=== PATIENT | female | born 1945 | race Caucasian/White ===

== ENCOUNTER 2017-04-08 11:55 | Inpatient (IN) | payer MEDICARE ==
[~2017-04-08 11:55] MED LIST: ALBUTEROL SULF8.5 GM IH; BENADRYL PO; BENZONATATE200 MG PO; CALCIUM PO; CALCIUM500 MG PO; CENTRUM COMPLE1 EACH PO; CENTRUM MULTIV1 EACH PO; HYDROCHLOROTH12.5 MG PO; IRON325 ( 65 ) PO; IRON325 M1 PO; K-DUR20 ME1 PO; LEVOFLOXACIN500 MG PO; LISINOPRIL-HCTZ PO; LISINOPRIL20 MG PO; MAGNESIUM400 MG PO; METOPROLOL TART25 MG PO; NATURAL VIT1000 UNIT PO; PERCOCET 5/3251 TAB PO; POTASSIUM CHLO10 MEQ PO; PREDNISONE20 MG PO; PROBIOTIC1 EAC4 PO; ULTRAM50 MG PO; VITAMIN B12 SQ; VITAMIN B12100 MCG PO; VITAMIN D3400 UNI2 PO; VITAMIN D400 UNI2 PO; ZOFRAN ODT4 MG/UDTAB PO; [UNRECOGNIZED DRUG - OTHER] PO; [UNRECOGNIZED DRUG - OTHER] PO
[2017-04-08 13:45] LABS: BASO % 0.2 % (0-2); EOS % 0.1 % (0-7); HCT-HEMATOCRIT 43.2 % (34.0-49.0); HGB-HEMOGLOBIN 15.3 gm/dl (12.0-15.5); IMMATURE GRANULOCYTES ABSOLUTE 0.04 tho/cmm (0-0.03); IMMATURE GRANULOCYTES PERCENT 0.3 % (0-0.3); LYMPH % 7.8 % (20-45); MCH (MEAN CORPUSCULAR HGB) 31.5 pg (28.0-32.0); MCHC MEAN CORPUSCULAR HGB CONC 35.4 % (32.0-36.0); MCV (MEAN CELL VOLUME) 88.9 fl (82.0-96.0); MEAN PLATELET VOLUME 11.5 cmc (9.4-12.4); MONO % 3.4 % (0-12); MONOCYTE ABSOLUTE COUNT 0.4 tho/cmm (0.0-1.2); NEUTROPHIL ABSOLUTE COUNT 11.3 tho/cmm (1.6-8.0); NEUTROPHIL-AUTOMATED 11.3 tho/cmm (1.6-8.0); NEUTROPHILS % 88.2 % (40-80); PLATELET COUNT 197 tho/cmm (150-450); RED BLOOD COUNT 4.86 mil/cmm (4.00-5.20); RED CELL DISTRIBUTION WIDTH 13.4 % (12.4-16.4); WHITE BLOOD COUNT 12.7 tho/cmm (4.0-10.0)
[2017-04-08 13:48] LABS: KETONE-BETA (WHOLE BLOOD) 0.2 mmol/L (0.0-0.6)
[2017-04-08 14:03] LABS: ALBUMIN 3.8 g/dl (3.5-5.0); ALKALINE PHOSPHATASE 97 U/L (33-138); ALT/SGPT 48 U/L (12-78); BILIRUBIN,TOTAL 0.6 mg/dl (0-1.5); BLOOD UREA NITROGEN 28 mg/dl (6-24); C-REACTIVE PROTEIN 0.8 mg/dl (0-0.9); CARBON DIOXIDE-VENOUS 19 mmol/L (22-32); CHLORIDE 106 mmol/l (96-110); CREATININE 1.14 mg/dl (0.50-1.10); GLUCOSE 327 mg/dL (70-110); SODIUM 138 mmol/L (135-145); eGFR VALUE FOR BLACK 56 mL/Min
[2017-04-08 14:06] LABS: ANION GAP 17 mmol/L (0-20); AST/SGOT 38 U/L (10-40); POTASSIUM 4.4 mmol/L (3.7-5.1)
[2017-04-08 15:17] LABS: URINE APPEARANCE CLEAR; URINE BILIRUBIN NEGATIVE (NEG); URINE BLOOD NEGATIVE (NEG); URINE COLOR YELLOW; URINE GLUCOSE (UA) LARGE (NEG); URINE KETONE SMALL (NEG); URINE LEUKOCYTE ESTERASE POSITIVE (NEG); URINE NITRITE NEGATIVE (NEG); URINE PROTEIN MODERATE (NEG); URINE SPECIFIC GRAVITY 1.015 (1.003-1.030)
[2017-04-08 15:27] LABS: URINE EPITHELIAL CELLS 0-2 /[HPF] (0-10); URINE RBC 0 /[HPF] (0-5); URINE WBC 0-2 /[HPF] (0-5)
[2017-04-08] MEDS ORDERED: LANTUS SOL100 UNIT/1 SC (15:46)
[2017-04-08] MEDS ORDERED: ATIVAN0.5 M1 PO (15:46)
[2017-04-08] MEDS ORDERED: LANOXIN250 MC2 PO (15:46)
[2017-04-08] MEDS ORDERED: COZAAR50 M1 PO (15:46)
[2017-04-08] MEDS ORDERED: NEURONTIN100 M1 PO (16:28)
[2017-04-08] MEDS ORDERED: LASIX20 M1 PO (16:28)
[2017-04-08] MEDS ORDERED: GLUCOPHAGE500 M3 PO (16:28)
[2017-04-08] MEDS ORDERED: SYNTHROID125 MC1 PO (16:28)
[2017-04-08] MEDS ORDERED: ZOFRAN4 M2 PO (16:29)
[2017-04-08] MEDS ORDERED: POTASSIUM CHLO20 ME3 PO (16:29)
[2017-04-08] MEDS ORDERED: PROTONIX40 M2 PO (16:29)
--- NOTE | 2017-04-08 18:42 | NUR ---
PT ARRIVED TO FLOOR, SETTLED IN ROOM. VS TAKEN. 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 INSERTED NG AT 1810 AND HOOKED TO LIS.
[2017-04-08] MEDS ORDERED: LOVAZA1 GM/CAP PO (21:14)
[2017-04-08] MEDS ORDERED: VITAMIN D31000 UNI3 PO (21:15)
[2017-04-08] MEDS ORDERED: VIT B12 SC (21:18)
[2017-04-09 05:38] LABS: BASO % 0.2 % (0-2); EOS % 1.1 % (0-7); EOSINOPHIL ABSOLUTE COUNT 0.1 tho/cmm (0.0-0.7); HCT-HEMATOCRIT 37.7 % (34.0-49.0); HGB-HEMOGLOBIN 12.9 gm/dl (12.0-15.5); IMMATURE GRANULOCYTES ABSOLUTE 0.02 tho/cmm (0-0.03); IMMATURE GRANULOCYTES PERCENT 0.2 % (0-0.3); LYMPH % 23.8 % (20-45); LYMPH ABSOLUTE COUNT 1.9 tho/cmm (0.8-4.5); MCH (MEAN CORPUSCULAR HGB) 30.9 pg (28.0-32.0); MCHC MEAN CORPUSCULAR HGB CONC 34.2 % (32.0-36.0); MCV (MEAN CELL VOLUME) 90.4 fl (82.0-96.0); MONO % 6.9 % (0-12); MONOCYTE ABSOLUTE COUNT 0.6 tho/cmm (0.0-1.2); NEUTROPHIL ABSOLUTE COUNT 5.5 tho/cmm (1.6-8.0); NEUTROPHIL-AUTOMATED 5.5 tho/cmm (1.6-8.0); NEUTROPHILS % 67.8 % (40-80); PLATELET COUNT 179 tho/cmm (150-450); RED BLOOD COUNT 4.17 mil/cmm (4.00-5.20); RED CELL DISTRIBUTION WIDTH 13.6 % (12.4-16.4); WHITE BLOOD COUNT 8.1 tho/cmm (4.0-10.0)
[2017-04-09 05:51] LABS: ANION GAP 15 mmol/L (0-20); BLOOD UREA NITROGEN 18 mg/dl (6-24); CALCIUM 7.7 mg/dl (8.5-10.5); CARBON DIOXIDE-VENOUS 23 mmol/L (22-32); CHLORIDE 110 mmol/l (96-110); GLUCOSE 201 mg/dL (70-110); POTASSIUM 3.9 mmol/L (3.7-5.1); SODIUM 144 mmol/L (135-145); eGFR VALUE FOR BLACK 74 mL/Min
[2017-04-10 06:06] LABS: ANION GAP 14 mmol/L (0-20); BLOOD UREA NITROGEN 13 mg/dl (6-24); CALCIUM 7.7 mg/dl (8.5-10.5); CARBON DIOXIDE-VENOUS 21 mmol/L (22-32); CHLORIDE 111 mmol/l (96-110); CREATININE 0.79 mg/dl (0.50-1.10); GLUCOSE 202 mg/dL (70-110); SODIUM 142 mmol/L (135-145); eGFR VALUE FOR BLACK 87 mL/Min
--- NOTE | 2017-04-10 22:33 | NUR ---
VIRTUAL CARE NOTE: REVIEWED PLAN OF CARE WITH PT. PT FEELING 99% BETTER THAN WHEN SHE CAME IN. HAVING A GREAT STAY. LOVES THE STAFF, HOSPITAL ETC. DENIES ANY QUESTIONS OR CONCERNS. HOPING TO TRY CLEARS TOMORROW AND HOME EARLY NEXT WEEK. STILL C/O JAW PAIN, ICE COMPRESS HELPS. WANTS NG OUT SOON HOPING THAT WILL HELP. ENCOURAGED FALL PRECAUTIONS AND TO NOTIFY STAFF WITH ANY NEEDS. PT V/U. WILL CONTINUE WITH CHART REVIEW.
[2017-04-11 07:05] LABS: ANION GAP 12 mmol/L (0-20); BLOOD UREA NITROGEN 9 mg/dl (6-24); CALCIUM 7.7 mg/dl (8.5-10.5); CARBON DIOXIDE-VENOUS 24 mmol/L (22-32); CHLORIDE 109 mmol/l (96-110); CREATININE 0.75 mg/dl (0.50-1.10); GLUCOSE 154 mg/dL (70-110); POTASSIUM 3.8 mmol/L (3.7-5.1); SODIUM 141 mmol/L (135-145); eGFR VALUE FOR BLACK >90 mL/Min
--- NOTE | 2017-04-11 19:23 | NUR ---
VIRTUAL CARE NOTE: ASSESSMENT DEFERRED. PT. SLEEPING.
[2017-04-12] MEDS ORDERED: FLONASE ALLERG9.9 ML (10:20)
--- NOTE | 2017-04-12 12:23 | NUR ---
VIRTUAL CARE NOTE: PT RESTING ON BED, FAMILY AT BEDSIDE. PT READY FOR DISCHARGE INSTURCTIONS, INFORMATION GIVEN TO PT, ALL QUESTIONS ANSWERED. PT DENIES FURTHER QUESTIONS OR CONCERNS.
[2017-08-17] MEDS ORDERED: SENOKOT8.6 M1 PO (14:41)
== END 2017-04-12 13:15 | DRG 389 ==
LOC: EDMED 11:55 → EMR2 16:44 → 5WD 19:14
PROVIDERS: Emergency Medicine; ADMIT Family Medicine
DX: K56.60 Unspecified intestinal obstruction (principal); K91.2 Postsurgical malabsorption, not elsewhere classified; E11.40 Type 2 diabetes mellitus with diabetic neuropathy, unspecified; E11.21 Type 2 diabetes mellitus with diabetic nephropathy; E11.65 Type 2 diabetes mellitus with hyperglycemia; G47.33 Obstructive sleep apnea (adult) (pediatric); Z95.2 Presence of prosthetic heart valve; I48.2 Chronic atrial fibrillation; I44.0 Atrioventricular block, first degree; I12.9 Hypertensive chronic kidney disease with stage 1 through stage 4 chronic kidney disease, or unspecified chronic kidney disease; E11.22 Type 2 diabetes mellitus with diabetic chronic kidney disease; N18.3 Chronic kidney disease, stage 3 (moderate); K21.9 Gastro-esophageal reflux disease without esophagitis; R09.81 Nasal congestion; E03.9 Hypothyroidism, unspecified; Z79.4 Long term (current) use of insulin; Z79.82 Long term (current) use of aspirin; Z88.8 Allergy status to other drugs, medicaments and biological substances; Z88.1 Allergy status to other antibiotic agents; Z98.84 Bariatric surgery status
CPT/HCPCS: C9113; J0131; J0360; J1160; J1815; J2060; J2270; J2405; J7030

== ENCOUNTER 2017-08-03 16:20 | Inpatient (IN) | payer MEDICARE ==
[~2017-08-03] VITALS: Ht 165.1 cm; Wt 80.0 kg
[~2017-08-03 16:20] MED LIST changes: +ATIVAN0.5 M1 PO; +COZAAR50 M1 PO; +FLONASE ALLERG9.9 ML; +GLUCOPHAGE500 M3 PO; +LANOXIN250 MC2 PO; +LANTUS SOL100 UNIT/1 SC; +LASIX20 M1 PO; +LOVAZA1 GM/CAP PO; +NEURONTIN100 M1 PO; +POTASSIUM CHLO20 ME3 PO; +PROTONIX40 M2 PO; +SYNTHROID125 MC1 PO; +VIT B12 SC; +VITAMIN D31000 UNI3 PO; +ZOFRAN4 M2 PO
[2017-08-03] MEDS ORDERED: HUMALOG100 UNITS/ SC (16:42)
[2017-08-03 17:08] LABS: BASO % 0.2 % (0-2); EOS % 0.4 % (0-7); HCT-HEMATOCRIT 42.7 % (34.0-49.0); HGB-HEMOGLOBIN 14.7 gm/dl (12.0-15.5); IMMATURE GRANULOCYTES ABSOLUTE 0.05 tho/cmm (0-0.03); IMMATURE GRANULOCYTES PERCENT 0.5 % (0-0.3); LYMPH % 8.9 % (20-45); MCH (MEAN CORPUSCULAR HGB) 31.1 pg (28.0-32.0); MCHC MEAN CORPUSCULAR HGB CONC 34.4 % (32.0-36.0); MCV (MEAN CELL VOLUME) 90.5 fl (82.0-96.0); MEAN PLATELET VOLUME 11.3 cmc (9.4-12.4); MONO % 5.5 % (0-12); MONOCYTE ABSOLUTE COUNT 0.6 tho/cmm (0.0-1.2); NEUTROPHILS % 84.5 % (40-80); PLATELET COUNT 182 tho/cmm (150-450); RED BLOOD COUNT 4.72 mil/cmm (4.00-5.20); RED CELL DISTRIBUTION WIDTH 13.2 % (12.4-16.4); WHITE BLOOD COUNT 10.6 tho/cmm (4.0-10.0)
[2017-08-03 17:49] LABS: URINE BILIRUBIN NEGATIVE (NEG); URINE BLOOD NEGATIVE (NEG); URINE GLUCOSE (UA) LARGE (NEG); URINE KETONE SMALL (NEG); URINE LEUKOCYTE ESTERASE NEGATIVE (NEG); URINE NITRITE NEGATIVE (NEG); URINE PROTEIN MODERATE (NEG); URINE SPECIFIC GRAVITY 1.015 (1.003-1.030)
[2017-08-03 17:50] LABS: URINE APPEARANCE CLEAR; URINE COLOR YELLOW
[2017-08-03 17:57] LABS: URINE EPITHELIAL CELLS 0-1 /[HPF] (0-10); URINE RBC 0 /[HPF] (0-5); URINE WBC 0-1 /[HPF] (0-5)
[2017-08-03 18:13] LABS: ALKALINE PHOSPHATASE 76 U/L (33-138); ALT/SGPT 54 U/L (12-78); BILIRUBIN,TOTAL 0.6 mg/dl (0-1.5); BLOOD UREA NITROGEN 30 mg/dl (6-24); CALCIUM 9.7 mg/dl (8.5-10.5); CARBON DIOXIDE-VENOUS 24 mmol/L (22-32); CHLORIDE 102 mmol/l (96-110); CREATININE 1.17 mg/dl (0.50-1.10); GLUCOSE 272 mg/dL (70-110); LIPASE 286 U/L (73-393); SODIUM 137 mmol/L (135-145); eGFR VALUE FOR BLACK 54 mL/Min
[2017-08-03 18:17] LABS: ANION GAP 16 mmol/L (0-20); AST/SGOT 38 U/L (10-40); POTASSIUM 4.5 mmol/L (3.7-5.1)
[2017-08-04 05:56] LABS: BASO % 0.1 % (0-2); EOS % 0.6 % (0-7); EOSINOPHIL ABSOLUTE COUNT 0.1 tho/cmm (0.0-0.7); HCT-HEMATOCRIT 37.9 % (34.0-49.0); HGB-HEMOGLOBIN 12.8 gm/dl (12.0-15.5); IMMATURE GRANULOCYTES ABSOLUTE 0.01 tho/cmm (0-0.03); IMMATURE GRANULOCYTES PERCENT 0.1 % (0-0.3); LYMPH ABSOLUTE COUNT 1.6 tho/cmm (0.8-4.5); MCH (MEAN CORPUSCULAR HGB) 30.7 pg (28.0-32.0); MCHC MEAN CORPUSCULAR HGB CONC 33.8 % (32.0-36.0); MCV (MEAN CELL VOLUME) 90.9 fl (82.0-96.0); MONO % 8.6 % (0-12); MONOCYTE ABSOLUTE COUNT 0.7 tho/cmm (0.0-1.2); NEUTROPHIL ABSOLUTE COUNT 5.6 tho/cmm (1.6-8.0); NEUTROPHIL-AUTOMATED 5.6 tho/cmm (1.6-8.0); NEUTROPHILS % 70.6 % (40-80); PLATELET COUNT 191 tho/cmm (150-450); RED BLOOD COUNT 4.17 mil/cmm (4.00-5.20); RED CELL DISTRIBUTION WIDTH 13.2 % (12.4-16.4); WHITE BLOOD COUNT 7.9 tho/cmm (4.0-10.0)
[2017-08-04 06:12] LABS: ANION GAP 11 mmol/L (0-20); BLOOD UREA NITROGEN 26 mg/dl (6-24); CALCIUM 8.8 mg/dl (8.5-10.5); CARBON DIOXIDE-VENOUS 30 mmol/L (22-32); CHLORIDE 105 mmol/l (96-110); CREATININE 1.19 mg/dl (0.50-1.10); GLUCOSE 191 mg/dL (70-110); POTASSIUM 4.1 mmol/L (3.7-5.1); SODIUM 142 mmol/L (135-145); eGFR VALUE FOR BLACK 52 mL/Min
[2017-08-04] MEDS ORDERED: HUMALOG100 UNITS/ SC (15:54)
[2017-08-04] MEDS ORDERED: FEOSOL325 M1 PO (15:58)
[2017-08-04] MEDS ORDERED: ASPIRIN EC81 MG PO (15:58)
[2017-08-04] MEDS ORDERED: CENTRUM COMPLE1 EAC1 PO (15:58)
[2017-08-04] MEDS ORDERED: MAGNESIUM OXID400 M1 PO (15:58)
[2017-08-04] MEDS ORDERED: IBUPROFEN200 M2 PO (15:59)
--- NOTE | 2017-08-04 18:21 | NUR ---
VN ROUNDING-PATIENT LAYING IN BED WITH SPOUSE AT BEDSIDE. PATIENT STATES SHE HAS A SEVERE HEADACHE AND THIS IS ONLY THE 2ND TIME SHE HAS HAD ONE. OTHERWISE SHE IS TRYING THE ICE CHIPS AND DOING OK WITH IT. I CALLED THE DOCTOR FOR ORDERS FOR A HEADACHE. NO FURTHER QUESTIONS OR CONCERNS FROM PATIENT OTHER THAN SHE SAID A DOCTOR IN THE PAST TOLD HER NOT TO TAKE TYLENOL BECAUSE OF HER LIVER.
[2017-08-05 06:19] LABS: ANION GAP 12 mmol/L (0-20); BLOOD UREA NITROGEN 17 mg/dl (6-24); CALCIUM 7.5 mg/dl (8.5-10.5); CARBON DIOXIDE-VENOUS 24 mmol/L (22-32); CHLORIDE 111 mmol/l (96-110); CREATININE 0.86 mg/dl (0.50-1.10); GLUCOSE 163 mg/dL (70-110); POTASSIUM 3.7 mmol/L (3.7-5.1); SODIUM 143 mmol/L (135-145); eGFR VALUE FOR BLACK 78 mL/Min
== END 2017-08-05 16:40 | DRG 389 ==
LOC: EDMED 16:20 → EMR2 20:56 → 5WD 20:56
PROVIDERS: Nurse Practitioner Family; Radiology Radiation Oncology; Registered Nurse; ADMIT Internal Medicine
DX: K56.60 Unspecified intestinal obstruction (principal); N17.9 Acute kidney failure, unspecified; K91.2 Postsurgical malabsorption, not elsewhere classified; E11.40 Type 2 diabetes mellitus with diabetic neuropathy, unspecified; E11.22 Type 2 diabetes mellitus with diabetic chronic kidney disease; E11.65 Type 2 diabetes mellitus with hyperglycemia; Z95.2 Presence of prosthetic heart valve; I48.2 Chronic atrial fibrillation; E03.9 Hypothyroidism, unspecified; E55.9 Vitamin D deficiency, unspecified; G47.33 Obstructive sleep apnea (adult) (pediatric); Z88.8 Allergy status to other drugs, medicaments and biological substances; Z79.82 Long term (current) use of aspirin; Z79.4 Long term (current) use of insulin; F41.9 Anxiety disorder, unspecified; I12.9 Hypertensive chronic kidney disease with stage 1 through stage 4 chronic kidney disease, or unspecified chronic kidney disease; N18.3 Chronic kidney disease, stage 3 (moderate); K21.9 Gastro-esophageal reflux disease without esophagitis; Z98.84 Bariatric surgery status
CPT/HCPCS: J0131; J0360; J1815; J2270; J2405; J2543; J7030; Q9967